=== PATIENT | male | born 1950 | race Caucasian/White ===

== ENCOUNTER 2018-12-17 08:24 | Emergency (ER) | payer MEDICARE ==
--- NOTE | 2018-12-17 08:29 | EDM.PDOC ---
ED HPI GENERAL MEDICAL PROBLEM - General Stated Complaint: INJURED FOOT Time Seen by Provider: 12/17/18 08:29 Source of Information: Reports: Patient - History of Present Illness INITIAL COMMENTS - FREE TEXT/NARRATIVE: HISTORY AND PHYSICAL: History of present illness: [Patient bumped his foot on the front door of his house while opening a door he is been having some pain with ambulation 3 out of 10 nonradiating involving the lateral foot no fever nausea vomiting chills sweats ] Review of systems: As per history of present illness and below otherwise all systems reviewed and negative. Past medical history: As per history of present illness and as reviewed below otherwise noncontributory. Surgical history: As per history of present illness and as reviewed below otherwise noncontributory. Social history: No reported history of drug or alcohol abuse. Family history: As per history of present illness and as reviewed below otherwise noncontributory. Physical exam: HEENT: Atraumatic, normocephalic, pupils reactive, negative for conjunctival pallor or scleral icterus, mucous membranes moist, throat clear, neck supple, nontender, trachea midline. Lungs: Clear to auscultation, breath sounds equal bilaterally, chest nontender. Heart: S1S2, regular, negative for clicks, rubs, or JVD. Abdomen: Soft, nondistended, nontender. Negative for masses or hepatosplenomegaly. Negative for costovertebral tenderness. Pelvis: Stable nontender. Genitourinary: Deferred. Rectal: Deferred. Extremities: Atraumatic, negative for cords or calf pain. Neurovascular unremarkable. Neuro: Awake, alert, oriented. Cranial nerves II through XII unremarkable. Cerebellum unremarkable. Motor and sensory unremarkable throughout. Exam nonfocal. Diagnostics: [] right foot complete Therapeutics: [] S Olmitz ibuprofen Impression: [] right foot injury/contusion Definitive disposition and diagnosis as appropriate pending reevaluation and review of above. Right foot Pain Score (Numeric/FACES): 3 - Related Data Allergies Allergy/AdvReac Type Severity Reaction Status Date / Time No Known Allergies Allergy Verified 12/17/18 08:41 Home Meds: Home Meds . [No Known Home Meds] 12/17/18 [History] Past Medical History Cardiovascular History: Reports: Arrhythmia Gastrointestinal History: Reports: GI Bleed ED ROS GENERAL - Review of Systems Review Of Systems: See Below ED EXAM, GENERAL - Physical Exam Exam: See Below Course - Vital Signs Last Recorded V/S: Last Vital Signs Temp 98.2 F 12/17/18 08:42 Pulse 56 L 12/17/18 08:42 Resp 15 12/17/18 08:42 BP 119/64 12/17/18 08:42 Pulse Ox 95 12/17/18 08:42 - Orders/Labs/Meds Labs: Laboratory Tests 12/17/18 12/17/18 Range/Units 08:55 08:55 WBC 6.78 (4.0-11.0) K/uL RBC 5.28 (4.50-5.90) M/uL Hgb 15.3 (13.0-17.0) g/dL Hct 44.5 (38.0-50.0) % MCV 84.3 (80.0-98.0) fL MCH 29.0 (27.0-32.0) pg MCHC 34.4 (31.0-37.0) g/dL RDW Std Deviation 43.8 (28.0-62.0) fl RDW Coeff of Lobo 14 (11.0-15.0) % Plt Count 193 (150-400) K/uL MPV 9.70 (7.40-12.00) fL Nucleated RBC % 0.0 /100WBC Nucleated RBCs # 0 K/uL Uric Acid 6.7 (2.6-7.2) mg/dL Departure - Departure Time of Disposition: 10:04 Disposition: Home, Self-Care 01 Condition: Good Clinical Impression: Right foot injury, Contusion - Discharge Information Referrals: Herman Ceja MD [Primary Care Provider] - Additional Instructions: Rest Ice 20 minute intervals 3 times daily 7-10 days Ibuprofen 3 times daily as needed Follow-up with primary care if symptoms persist or worsen [facility] - Primary Care [address] [place] [address] The following information is given to patients seen in the emergency department who are being discharged to home. This information is to outline your options for follow-up care. We provide all patients seen in our emergency department with a follow-up referral. The need for follow-up, as well as the timing and circumstances, are variable depending upon the specifics of your emergency department visit. If you don't have a primary care physician on staff, we will provide you with a referral. We always advise you to contact your personal physician following an emergency department visit to inform them of the circumstance of the visit and for follow-up with them and/or the need for any referrals to a consulting specialist. The emergency department will also refer you to a specialist when appropriate. This referral assures that you have the opportunity for follow-up care with a specialist. All of these measure are taken in an effort to provide you with optimal care, which includes your follow-up. Under all circumstances we always encourage you to contact your private physician who remains a resource for coordinating your care. When calling for follow-up care, please make the office aware that this follow-up is from your recent emergency room visit. If for any reason you are refused follow-up, please contact the [facility] emergency department at and asked to speak to the emergency department charge nurse.
--- NOTE | 2018-12-17 09:57 | CR ---
EXAMINATION: Right foot HISTORY: Pain COMPARISON: None TECHNIQUE: 3 views FINDINGS/IMPRESSION: There is no acute osseous abnormality, dislocation, or fracture. Bone mineralization and joint spaces are preserved. No focal soft tissue swelling. Mild osteoarthritic changes within the interphalangeal joints in the tibiotalar joint.
[2018-12-17 17:29] VITALS: BP 113/51
== END 2018-12-17 10:15 | disposition home or self-care (01) ==
LOC: MW.ED 08:24
DX: S90.31XA Contusion of right foot, initial encounter (principal); W22.8XXA Striking against or struck by other objects, initial encounter
CPT/HCPCS: 36415; 73630-26-RT; 73630-RT; 84550; 85027; 99283

== ENCOUNTER 2019-11-23 00:56 | Emergency (ER) | payer MEDICARE ==
--- NOTE | 2019-11-23 01:26 | CR ---
INDICATION: Chest pain TECHNIQUE: Chest 1 view COMPARISON: None FINDINGS: Cardiovascular and mediastinum: Heart size and vasculature are normal in caliber and appearance. Pacemaker is present. Lungs and pleural spaces: Lungs are clear. No sign of infiltrate or mass. No sign of pleural effusion. No pneumothorax. Bones and soft tissues: No significant findings. IMPRESSION: No acute or significant findings. Dictated by Cy Mahajan MD @ Nov 23 2019 1:23AM Signed by Dr. Cy Mahajan @ Nov 23 2019 1:25AM
[2019-11-23 01:52] LABS: BLOOD UREA NITROGEN,BUN 39 mg/dL (7.0-18.0); CARBON DIOXIDE,CO2 25.4 mmol/L (21.0-32.0); CHLORIDE,CL 107 mmol/L (98-107); GLUCOSE RANDOM 142 mg/dL (74-106); LIPASE 131 U/L (73-393); SODIUM,NA 143 mmol/L (136-148)
[2019-11-23] MEDS ORDERED: Sodium Chloride 0.9% 1,000 ML IV ONE (02:00)
[2019-11-23] MEDS ORDERED: Pantoprazole 80 MG in Sodium Chloride 0.9% 20 ML IVPUSH ONE (02:00)
[2019-11-23] MEDS ORDERED: Iopamidol 755 Mg/ML 100 ML Bottle IVPUSH STA (02:24)
--- NOTE | 2019-11-23 03:20 | CT ---
INDICATION: Chest pain and elevated D-dimer. TECHNIQUE: CT chest PE was acquired with 100 cc Isovue 370 intravenous contrast. COMPARISON: None. FINDINGS: Heart and vasculature: Contrast opacification of the pulmonary arterial tree is adequate. No sign of pulmonary embolism. Great vessels unremarkable mild atherosclerotic calcification with normal caliber of the thoracic aorta. No pericardial effusion. Pacemaker leads at the right atrial appendage and right ventricle. Lungs and pleural: No pleural effusion or pneumothorax. Subpleural scarring along the minor fissure. Scattered areas of discoid atelectasis within the lung bases. Lymph nodes/mediastinum: No mediastinal, hilar, or axillary adenopathy. Thyroid gland is normal. Chest wall: Generator left chest wall. Upper abdomen: Status post cholecystectomy. Bones: Unremarkable for age. IMPRESSION: 1. No evidence of pulmonary embolus. 2. Scattered areas of discoid atelectasis lung bases. Please note that all CT scans at this facility use dose modulation, iterative reconstruction, and/or weight-based dosing when appropriate to reduce radiation dose to as low as reasonably achievable. Dictated by Marv Mora MD @ Nov 23 2019 3:14AM Signed by Dr. Marv Mora @ Nov 23 2019 3:19AM
--- NOTE | 2019-11-23 04:29 | CT ---
INDICATION: Abdominal pain and leukocytosis TECHNIQUE: CT abdomen and pelvis without contrast. COMPARISON: None. FINDINGS: Lower chest: Pacemaker leads in the right ventricle. Bibasilar discoid atelectasis. Liver: Normal in size and attenuation. No masses. Gallbladder and bile ducts: Status post cholecystectomy. Pancreas: Unremarkable. No mass or inflammation. Spleen: Normal in size. No masses. Adrenal glands: Normal in size. No nodules. Kidneys: Symmetric renal enhancement without hydronephrosis. Pelvic cysts left kidney as well as a posterior renal cyst measuring 13 millimeters. GI tract: The stomach is unremarkable. There are no dilated loops of large or small intestine with colonic diverticulosis noted. Vasculature: Atherosclerosis without abdominal aortic aneurysm. Pelvis: Unremarkable. No pelvic masses. Bones: Unremarkable for age. IMPRESSION: 1. Colonic diverticulosis without amna diverticulitis. 2. Bilateral renal cysts. Please note that all CT scans at this facility use dose modulation, iterative reconstruction, and/or weight-based dosing when appropriate to reduce radiation dose to as low as reasonably achievable. Dictated by Marv Mora MD @ Nov 23 2019 4:21AM Signed by Dr. Marv Mora @ Nov 23 2019 4:27AM
[2019-11-23 05:45] LABS: BLOOD UREA NITROGEN,BUN 47 mg/dL (7.0-18.0); CARBON DIOXIDE,CO2 25.9 mmol/L (21.0-32.0); CHLORIDE,CL 108 mmol/L (98-107); GLUCOSE RANDOM 124 mg/dL (74-106); SODIUM,NA 143 mmol/L (136-148)
--- NOTE | 2019-11-23 06:15 | EDM.PDOC ---
ED HPI GENERAL MEDICAL PROBLEM - General Chief Complaint: Chest Pain Stated Complaint: AMB Time Seen by Provider: 11/23/19 06:07 - History of Present Illness INITIAL COMMENTS - FREE TEXT/NARRATIVE: HPI 69-year-old male smoker with CAD and upper GI bleeds presents for evaluation of sudden onset shortness of breath, chest pain, and nausea with a sensation that he needs to defecate. Patient now without chest pain. Uncertain of change with sublingual nitroglycerin given by EMS. Symptoms occurred approximately one hour prior to arrival. Patient denies recent immobilization, leg trauma, estrogen use , surgery in the last four weeks, hemoptysis, or malignancy in the last 6 months. M/S/F/SocHx notable for: please see HPI; remainder reviewed with patient and in chart. ROS: Negative constitutional, eye, cardiovascular, pulmonary, GI, , MSK, skin , neurologic, psychiatric, endocrine unless noted in the HPI. Exam Gen: Pleasant, non-toxic appearing, resting comfortably. HEENT: NC, AT, PEERL, EOMI. Resp: Clear to auscultation bilaterally, normal work of breathing. Card: RRR with no M/R/G, no crackles in lung bases, no pedal edema, no JVD appreciated. GI: NT/ND Vascular: Both ankles, calves, and thighs of equal size, no calf tenderness to palpation bilaterally. MSK: No chest wall TTP. No visible deformities, strength and tone WNL. Skin: Normal color with no visible lesions. Neuro: AO x 3, no facial asymmetry, vision and hearing WNL. Psych: Mood and affect appropriate. Labs / Imaging (pertinent): WBC 15.6, Hb (1 AM) 13.6, Hb (5:18 AM) 12.8, Na 143, K 5.0, AST 20, ALT 34, alkaline phosphatase 74, total bilirubin 0.4, troponin (1 AM) <0.050, troponin ( 5:18 AM) <0.050, D-dimer 1.70. FOBT positive EKG: SR at 96 bpm, no IN segment depressions, no new ST segment changes, new LBBB, or T-wave changes that would suggest acute ischemia. CXR: No acute or significant findings. CT PE: no evidence of pulmonary embolism. Scattered areas of discoid atelectasis lung bases. CT abdomen/pelvis: 1 colonic diverticulosis without Sergio diverticulitis. 2. Bilateral renal cysts. MDM Previous chart, nursing note, and vitals reviewed. A: 69-year-old male smoker with CAD and upper GI bleeds presents for evaluation of sudden onset shortness of breath, chest pain, and nausea with a sensation that he needs to defecate. DDx and Evaluation: patient with poorly characterized type discomfort concerning for either intrabdominal or cardiothoracic etiology. Strongly suspect the patients symptoms are secondary to recurrent ulcerative bleeding, FOBT positive, patient with dark stool, BUN:Cr 35. No features to suggest a variceal bleed. Protonix given. 1 L NS given. Vital signs stabilize, patient monitored approximately 4 hours with repeat hemoglobin with minimal change. No evidence of clinically significant active bleeding. CT abdomen and pelvis without evidence of acute intra-abdominal abnormality. CT PE protocol without evidence of acute pathology. ECG nonischemic, serial cardiac enzymes negative. Patient with nonspecific leukocytosis which significantly decreased on repeat CBC. History and exam without evidence of active infectious process, suspect this is secondary to stress. Suspect the epigastric discomfort with nausea the patient experienced prior to presentation was secondary to blood in his stomach. Strongly doubt unstable angina given the overall symptom constellation (1), while this cannot be definitively excluded, the patient is appropriate for outpatient follow-up. Disposition: patient discharged on PPI, will follow up with PCP. Impression: epigastric pain, suspected upper GI bleed. (please reference below for remainder of encounter information) 1. HEART 4 (Hx - 0, EKG - 0, age - 2, risk factors - 2, troponin - 0; 30 day MACE: 12-16.6%, however), however all of the positive factors are present at baseline and were not influenced by todays presentation. Treatments CORPORATE SAFETY DIRECTOR: Reports: IV/IO, Nitroglycerin, Oxygen chest Pain Score (Numeric/FACES): 3 - Related Data Allergies Allergy/AdvReac Type Severity Reaction Status Date / Time No Known Allergies Allergy Verified 11/23/19 01:14 Home Meds: Home Meds Metoprolol Succinate [Kapspargo Sprinkle] 25 mg PO DAILY 11/23/19 [History] Pantoprazole [ProTONIX] 40 mg PO DAILY #20 tab.cr 11/23/19 [Rx] Ranitidine [Zantac] 0 mg PO DAILY 11/23/19 [History] atorvaSTATin [Lipitor] 20 mg PO DAILY 11/23/19 [History] Past Medical History - Past Health History Medical/Surgical History: Denies Medical/Surgical History Cardiovascular History: Reports: Afib, Arrhythmia, High Cholesterol, Pacemaker Gastrointestinal History: Reports: GI Bleed - Infectious Disease History Infectious Disease History: Reports: None - Past Surgical History GI Surgical History: Reports: Appendectomy, Cholecystectomy Social & Family History - Family History Family Medical History: Noncontributory - Tobacco Use Smoking Status *Q: Current Every Day Smoker Years of Tobacco use: 50 Packs/Tins Daily: 1 - Caffeine Use Caffeine Use: Reports: Coffee - Recreational Drug Use Recreational Drug Use: No ED ROS GENERAL - Review of Systems Review Of Systems: See Below ED EXAM, GENERAL - Physical Exam Exam: See Below Course - Vital Signs Last Recorded V/S: Last Vital Signs Temp 36.0 C 11/23/19 02:15 Pulse 98 11/23/19 04:00 Resp 18 11/23/19 04:00 BP 106/65 11/23/19 04:00 Pulse Ox 96 11/23/19 04:00 - Orders/Labs/Meds Orders: Active Orders 24 hr Category Date Time Status EKG Documentation Completion [RC] STAT Care 11/23/19 01:15 Active Fecal Occult Blood Collection [RC] ASDIRECTED Care 11/23/19 01:48 Inactive Fecal Occult Blood Collection [RC] ASDIRECTED Care 11/23/19 02:00 Inactive Labs: Laboratory Tests 11/23/19 11/23/19 11/23/19 Range/Units 01:00 01:00 01:00 WBC 15.64 H (4.0-11.0) K/uL RBC 4.58 (4.50-5.90) M/uL Hgb 13.6 (13.0-17.0) g/dL Hct 39.9 (38.0-50.0) % MCV 87.1 (80.0-98.0) fL MCH 29.7 (27.0-32.0) pg MCHC 34.1 (31.0-37.0) g/dL RDW Std Deviation 43.8 (28.0-62.0) fl RDW Coeff of Lobo 14 (11.0-15.0) % Plt Count 261 (150-400) K/uL MPV 10.30 (7.40-12.00) fL Neut % (Auto) (48.0-80.0) % Lymph % (Auto) (16.0-40.0) % [place] % (Auto) (0.0-15.0) % Eos % (Auto) (0.0-7.0) % Baso % (Auto) (0.0-1.5) % Neut # (Auto) (1.4-5.7) K/uL Lymph # (Auto) (0.6-2.4) K/uL [place] # (Auto) (0.0-0.8) K/uL Eos # (Auto) (0.0-0.7) K/uL Baso # (Auto) (0.0-0.1) K/uL Add Manual Diff YES Neutrophils % (Manual) 68 (48.0-80.0) % Band Neutrophils % 1 % Lymphocytes % (Manual) 21 (16.0-40.0) % Monocytes % (Manual) 8 (0.0-15.0) % Eosinophils % (Manual) 2 (0.0-7.0) % Nucleated RBC % /100WBC Absolute Seg Neuts 10.6 H (1.4-5.7) Band Neutrophils # 0.2 Lymphocytes # (Manual) 3.3 H (0.6-2.4) Monocytes # (Manual) 1.3 H (0.0-0.8) Eosinophils # (Manual) 0.3 (0.0-0.7) Nucleated RBCs # K/uL D-Dimer, Quantitative 1.70 H (0.0-0.50) mg/L FEU Sodium 143 (136-148) mmol/L Potassium 5.0 (3.5-5.1) mmol/L Chloride 107 (98-107) mmol/L Carbon Dioxide 25.4 (21.0-32.0) mmol/L BUN 39 H (7.0-18.0) mg/dL Creatinine 1.1 (0.8-1.3) mg/dL Est Cr Clr Drug Dosing 81.00 mL/min Estimated GFR (MDRD) > 60.0 ml/min Glucose 142 H (74-106) mg/dL Calcium 8.2 L (8.5-10.1) mg/dL Total Bilirubin 0.4 (0.2-1.0) mg/dL AST 20 (15-37) IU/L ALT 34 (14-63) IU/L Alkaline Phosphatase 74 (46-116) U/L Troponin I < 0.050 (0.000-0.056) ng/mL Total Protein 6.3 L (6.4-8.2) g/dL Albumin 3.5 (3.4-5.0) g/dL Globulin 2.8 (2.6-4.0) g/dL Albumin/Globulin Ratio 1.2 (0.9-1.6) Lipase 131 (73-393) U/L 11/23/19 11/23/19 Range/Units 05:18 05:18 WBC 11.88 H (4.0-11.0) K/uL RBC 4.40 L (4.50-5.90) M/uL Hgb 12.8 L (13.0-17.0) g/dL Hct 38.0 (38.0-50.0) % MCV 86.4 (80.0-98.0) fL MCH 29.1 (27.0-32.0) pg MCHC 33.7 (31.0-37.0) g/dL RDW Std Deviation 44.4 (28.0-62.0) fl RDW Coeff of Lobo 14 (11.0-15.0) % Plt Count 191 (150-400) K/uL MPV 10.10 (7.40-12.00) fL Neut % (Auto) 86.1 H (48.0-80.0) % Lymph % (Auto) 9.2 L (16.0-40.0) % [place] % (Auto) 4.3 (0.0-15.0) % Eos % (Auto) 0.3 (0.0-7.0) % Baso % (Auto) 0.1 (0.0-1.5) % Neut # (Auto) 10.2 H (1.4-5.7) K/uL Lymph # (Auto) 1.1 (0.6-2.4) K/uL [place] # (Auto) 0.5 (0.0-0.8) K/uL Eos # (Auto) 0.0 (0.0-0.7) K/uL Baso # (Auto) 0.0 (0.0-0.1) K/uL Add Manual Diff Neutrophils % (Manual) (48.0-80.0) % Band Neutrophils % % Lymphocytes % (Manual) (16.0-40.0) % Monocytes % (Manual) (0.0-15.0) % Eosinophils % (Manual) (0.0-7.0) % Nucleated RBC % 0.0 /100WBC Absolute Seg Neuts (1.4-5.7) Band Neutrophils # Lymphocytes # (Manual) (0.6-2.4) Monocytes # (Manual) (0.0-0.8) Eosinophils # (Manual) (0.0-0.7) Nucleated RBCs # 0 K/uL D-Dimer, Quantitative (0.0-0.50) mg/L FEU Sodium 143 (136-148) mmol/L Potassium 5.0 (3.5-5.1) mmol/L Chloride 108 H (98-107) mmol/L Carbon Dioxide 25.9 (21.0-32.0) mmol/L BUN 47 H (7.0-18.0) mg/dL Creatinine 1.0 (0.8-1.3) mg/dL Est Cr Clr Drug Dosing 89.10 mL/min Estimated GFR (MDRD) > 60.0 ml/min Glucose 124 H (74-106) mg/dL Calcium 8.6 (8.5-10.1) mg/dL Total Bilirubin (0.2-1.0) mg/dL AST (15-37) IU/L ALT (14-63) IU/L Alkaline Phosphatase (46-116) U/L Troponin I < 0.050 (0.000-0.056) ng/mL Total Protein (6.4-8.2) g/dL Albumin (3.4-5.0) g/dL Globulin (2.6-4.0) g/dL Albumin/Globulin Ratio (0.9-1.6) Lipase (73-393) U/L Meds: Medications Discontinued Medications Generic Name Dose Route Start Last Admin Trade Name Claudio PRN Reason Stop Dose Admin Pantoprazole Sodium 80 mg/ 20 mls @ 420 mls/hr 11/23/19 02:00 11/23/19 02:13 Sodium Chloride IVPUSH 11/23/19 02:02 420 mls/hr ONETIME ONE Administration Sodium Chloride 1,000 mls @ 1,000 mls/hr 11/23/19 02:00 11/23/19 02:13 Normal Saline IV 11/23/19 02:59 1,000 mls/hr .Bolus ONE Administration Iopamidol 100 ml 11/23/19 02:24 11/23/19 02:58 Isovue-370 (76%) IVPUSH 11/23/19 02:25 100 ml ONETIME STA Administration Departure - Departure Time of Disposition: 06:07 Disposition: Home, Self-Care 01 Clinical Impression: Epigastric pain, Upper GI bleed - Discharge Information Prescriptions: Pantoprazole [ProTONIX] 40 mg PO DAILY #20 tab.cr Referrals: Herman Ceja MD [Primary Care Provider] - Additional Instructions: You were in seen in the [facility] Emergency Department for evaluation of upper abdominal pain. At the time of your evaluation your symptoms are tentatively believed to be due to a recurrent upper GI bleed. Please take an [id number] proton pump inhibitor medication , such as Protonix. Please read and follow all of the instructions below. Please follow up with your primary care physician within 48 hours. When calling for follow-up care, please make the office aware that this follow-up is from your recent emergency room visit. If for any reason you are refused follow-up, please contact the [facility] Emergency Department at and asked to speak to the emergency department charge nurse. Your care today was limited to identifying and treating emergent medical problems only. Many people have subtle differences in their test results that require follow up with their outpatient physician(s) to correctly determine if this represents a normal variation or concerning abnormality with respect to your specific health. The care given to you today was limited to identifying and treating emergent medical problems - you need to request a copy of all of your medical records from today's visit and follow up with your outpatient physician(s) to review both today's visit and your overall health. If you have any new symptoms or if you are at all concerned about your health please return immediately to the emergency department. Prescriptions: If you are uninsured or have financial difficulties with filling your prescription(s), you may consider using a free pharmacy discount service such as [employer] ([employer]) or [employer] ([employer]). These services allow you to search for a medication on your phone (or computer) and obtain a coupon that usually has a significant discount from the list pineda at a pharmacy. Your physician as well as [facility] does not have a financial relationship with either of these services. You may also wish to speak with your physician to determine if lower cost prescriptions are possible. Obtaining primary care: 1. [facility] provides pediatrics (children), family medicine (children, adults, and some obstetrical care), and internal medicine (adults). Further specialty care is also available. Same day appointments are available. They may be contacted at [phone] and are open Monday through Monday 8 AM to 5 PM. The [facility] are located at [facility], [address] [place] [address]. 2. [facility] offers family medicine, internal medicine, womens health, and further specialty care. [facility] may be contacted at [phone]. [facility] is located at [address] [facility] [address]. 3. If you have health insurance, please also contact your insurer for a list of accepting providers under your policy, you may contact these providers for further health care. Occupational health: Work related injuries may consider following up with [facility], . Occupational health services are located at [address] [place] [address] and are open Monday through Monday from 7: 30 am to 5:00 pm. Obstetrical and Gynecological Care: [facility], , Monday through Monday 8 AM to 5 PM. [address] [address]. Eyecare: If you have an eye injury you should follow up with your advertising copy writer or with [facility], at [phone] or [phone] , they are located at [address] [place] [address]. [facility] Brandon Omer DDS. [address] [place], [place]. Ph. [phone] Ramos Omer DDS MS. [address] [facility] [address], [place], [place]. Ph. Lonnie Last DDS. 10 11/[address] [place] [address]. Ph. [phone] Manuelito Boo DDS. [address] [facility] 4 [place], [place]. Ph. [phone] Oliver Rosario DDS PC. [address] [facility] [address] [place], [place]. Ph. Xin Palomares DDS. [address] [facility] [address] [facility]. Ph. [phone] [facility]. [address] [place], [place]. Ph. [phone] [facility]. [address] [place] [address], [place], [place]. Ph. [phone] [facility] [address] [place] [phone]. Ph. [facility]. [address] [place] [address] [address] [place], [place]. Ph. [facility]. [address] [place], [place]. Ph. [phone] Sepsis Event Note - Evaluation Sepsis Screening Result: No Definite Risk - Focused Exam Vital Signs: Vital Signs Temp Pulse Resp BP Pulse Ox 11/23/19 04:00 98 18 106/65 96 11/23/19 02:15 36.0 C 92 18 96/63 95 11/23/19 00:56 35.5 C 102 H 20 108/69 95 Date Exam was Performed: 11/23/19 Time Exam was Performed: 06:07 - My Orders Last 24 Hours: My Active Orders 11/23/19 01:15 EKG Documentation Completion [RC] STAT 11/23/19 01:48 Fecal Occult Blood Collection [RC] ASDIRECTED 11/23/19 02:00 Fecal Occult Blood Collection [RC] ASDIRECTED - Assessment/Plan Last 24 Hours: My Active Orders 11/23/19 01:15 EKG Documentation Completion [RC] STAT 11/23/19 01:48 Fecal Occult Blood Collection [RC] ASDIRECTED 11/23/19 02:00 Fecal Occult Blood Collection [RC] ASDIRECTED
[2019-11-23 06:47] VITALS: BP 106/63; PULSE 96
== END 2019-11-23 06:35 | disposition home or self-care (01) ==
LOC: MW.ED 00:56
DX: K92.2 Gastrointestinal hemorrhage, unspecified (principal); E78.00 Pure hypercholesterolemia, unspecified; F17.210 Nicotine dependence, cigarettes, uncomplicated; Z79.899 Other long term (current) drug therapy
CPT/HCPCS: 36415; 71045; 71275; 74176; 80048; 80053; 82272; 83690; 84484; 85025; 85379; 93005; 96361; 96374; 99285; C9113; J7030; Q9967; 99284

== ENCOUNTER 2019-11-24 11:07 | Emergency (ER) | payer MEDICARE ==
--- NOTE | 2019-11-24 11:18 | EDM.PDOC ---
ED HPI GENERAL MEDICAL PROBLEM - General Chief Complaint: Gastrointestinal Problem Stated Complaint: UPPER GI BLEED Time Seen by Provider: 11/24/19 11:17 Source of Information: Reports: Patient History Limitations: Reports: No Limitations - History of Present Illness INITIAL COMMENTS - FREE TEXT/NARRATIVE: Patient is a 69-year-old male who presents after having 3 days of melena with each bowel movement today occurring once an hour while awake. Patient is feeling lightheaded with standing and dyspnea with even slight exertion. Is complaining of mild epigastric pain but has not been vomiting and there is been no hematochezia. Patient has had this problem numerous times in the past and with one previous admission required 23 units of blood and was in a coma for 2 days. Patient does take aspirin for his arthritis symptoms even though he knows he is not supposed to be taking that due to his GI bleed. Previous bleeding was due to a upper bleeds secondary to gastric ulcer. Patient has refused surgery previously to repair this ulcer. Duration: Getting Worse Location: Reports: Abdomen Quality: Reports: Ache, Dull Severity: Mild Improves with: Reports: None Worsens with: Reports: Eating Associated Symptoms: Reports: Shortness of Breath, Weakness - Related Data Allergies Allergy/AdvReac Type Severity Reaction Status Date / Time No Known Allergies Allergy Verified 11/24/19 11:34 Home Meds: Home Meds Metoprolol Succinate [Kapspargo Sprinkle] 25 mg PO DAILY 11/23/19 [History] Pantoprazole [ProTONIX] 40 mg PO DAILY #20 tab.cr 11/23/19 [Rx] Ranitidine [Zantac] 0 mg PO DAILY 11/23/19 [History] atorvaSTATin [Lipitor] 20 mg PO DAILY 11/23/19 [History] Past Medical History - Past Health History Medical/Surgical History: Denies Medical/Surgical History Cardiovascular History: Reports: Afib, Arrhythmia, High Cholesterol, Pacemaker Gastrointestinal History: Reports: GI Bleed - Infectious Disease History Infectious Disease History: Reports: None - Past Surgical History GI Surgical History: Reports: Appendectomy, Cholecystectomy Social & Family History - Family History Family Medical History: Noncontributory - Caffeine Use Caffeine Use: Reports: Coffee ED ROS GENERAL - Review of Systems Review Of Systems: Comprehensive ROS is negative, except as noted in HPI. ED EXAM, GI/ABD - Physical Exam Exam: See Below Exam Limited By: No Limitations General Appearance: Alert, No Apparent Distress Head: Atraumatic Neck: Normal Inspection, Supple Respiratory/Chest: No Respiratory Distress, Lungs Clear, Normal Breath Sounds. No: Decreased Breath Sounds, Crackles, Rales Cardiovascular: Regular Rate, Rhythm, No Edema, No JVD, No Murmur GI/Abdominal Exam: Normal Bowel Sounds, Soft, No Organomegaly, Tender Back Exam: Normal Inspection Extremities: Normal Inspection Neurological: Alert, Oriented Psychiatric: Normal Affect Skin Exam: Warm, Dry, Normal Color Course - Vital Signs Last Recorded V/S: Last Vital Signs Temp 36.4 C 11/24/19 11:36 Pulse 78 11/24/19 12:10 Resp 18 11/24/19 12:10 BP 134/76 11/24/19 12:10 Pulse Ox 98 11/24/19 12:10 Orthostatic Blood Pressure [ 118/72 Standing] Orthostatic Blood Pressure [ 123/82 Sitting] Orthostatic Blood Pressure [ 129/76 Supine] - Orders/Labs/Meds Orders: Active Orders 24 hr Category Date Time Status EKG 12 Lead [EKG Documentation Completion] [RC] STAT Care 11/24/19 11:24 Active Orthostatic Vital Signs [RC] ASDIRECTED Care 11/24/19 11:28 Active C DIFFICILE AG/TOXIN W/REFLEX [RM] Stat Lab 11/24/19 13:56 Ordered OVA & PARASITES BY IMMUNOASSAY [MREF] Stat Lab 11/24/19 13:56 Ordered Sodium Chloride 0.9% [Saline Flush] Med 11/24/19 11:26 Active 10 ml FLUSH ASDIRECTED PRN Sodium Chloride 0.9% [Saline Flush] Med 11/24/19 11:26 Active 2.5 ml FLUSH ASDIRECTED PRN Saline Lock Insert [OM.PC] Stat Oth 11/24/19 11:26 Ordered Medication Orders Sodium Chloride (Saline Flush) 10 ml FLUSH ASDIRECTED PRN PRN Reason: Keep Vein Open Last Admin: 11/24/19 11:50 Dose: 10 ml Sodium Chloride (Saline Flush) 2.5 ml FLUSH ASDIRECTED PRN PRN Reason: Keep Vein Open Last Admin: 11/24/19 11:50 Dose: 2.5 ml Labs: Laboratory Tests 11/24/19 11/24/19 11/24/19 Range/Units 11:44 11:44 11:44 WBC 8.97 (4.0-11.0) K/uL RBC 4.37 L (4.50-5.90) M/uL Hgb 12.8 L (13.0-17.0) g/dL Hct 37.7 L (38.0-50.0) % MCV 86.3 (80.0-98.0) fL MCH 29.3 (27.0-32.0) pg MCHC 34.0 (31.0-37.0) g/dL RDW Std Deviation 44.8 (28.0-62.0) fl RDW Coeff of Lobo 14 (11.0-15.0) % Plt Count 219 (150-400) K/uL MPV 10.20 (7.40-12.00) fL Neut % (Auto) 62.8 (48.0-80.0) % Lymph % (Auto) 27.5 (16.0-40.0) % Garland % (Auto) 7.2 (0.0-15.0) % Eos % (Auto) 2.3 (0.0-7.0) % Baso % (Auto) 0.2 (0.0-1.5) % Neut # (Auto) 5.6 (1.4-5.7) K/uL Lymph # (Auto) 2.5 H (0.6-2.4) K/uL Garland # (Auto) 0.7 (0.0-0.8) K/uL Eos # (Auto) 0.2 (0.0-0.7) K/uL Baso # (Auto) 0.0 (0.0-0.1) K/uL Nucleated RBC % 0.0 /100WBC Nucleated RBCs # 0 K/uL Sodium 141 (136-148) mmol/L Potassium 3.7 (3.5-5.1) mmol/L Chloride 104 (98-107) mmol/L Carbon Dioxide 25.5 (21.0-32.0) mmol/L BUN 34 H (7.0-18.0) mg/dL Creatinine 1.1 (0.8-1.3) mg/dL Est Cr Clr Drug Dosing 81.00 mL/min Estimated GFR (MDRD) > 60.0 ml/min Glucose 108 H (74-106) mg/dL Calcium 9.1 (8.5-10.1) mg/dL Total Bilirubin 0.4 (0.2-1.0) mg/dL AST 23 (15-37) IU/L ALT 41 (14-63) IU/L Alkaline Phosphatase 76 (46-116) U/L Total Protein 7.4 (6.4-8.2) g/dL Albumin 4.4 (3.4-5.0) g/dL Globulin 3.0 (2.6-4.0) g/dL Albumin/Globulin Ratio 1.5 (0.9-1.6) Blood Type B POSITIVE Antibody Screen NEGATIVE Meds: Medications Generic Name Dose Route Start Last Admin Trade Name Freq PRN Reason Stop Dose Admin Sodium Chloride 10 ml 11/24/19 11:26 11/24/19 11:50 Saline Flush FLUSH 10 ml ASDIRECTED PRN Administration Keep Vein Open Sodium Chloride 2.5 ml 11/24/19 11:26 11/24/19 11:50 Saline Flush FLUSH 2.5 ml ASDIRECTED PRN Administration Keep Vein Open Discontinued Medications Generic Name Dose Route Start Last Admin Trade Name Freq PRN Reason Stop Dose Admin Pantoprazole Sodium 80 mg/ 20 mls @ 420 mls/hr 11/24/19 11:28 11/24/19 12:06 Sodium Chloride IVPUSH 11/24/19 11:30 420 mls/hr ONETIME ONE Administration Sodium Chloride 1,000 mls @ 999 mls/hr 11/24/19 11:26 11/24/19 11:49 Normal Saline IV 11/24/19 12:26 999 mls/hr BOLUS ONE Administration Pantoprazole Sodium 80 mg/ 20 mls @ 420 mls/hr 11/24/19 11:52 Sodium Chloride IVPUSH 11/24/19 11:54 ONETIME ONE - Re-Assessments/Exams Free Text/Narrative Re-Assessment/Exam: 11/24/19 14:01 Patient's H&H is stable with hemoglobin at 12.7. Orthostatic vital signs were positive with his heart rate going up more than 20 from lying to standing. Patient did have a bowel movement while in the department which was brown in color but had some bright red blood around it. He was given a liter of IV fluid and is feeling better was treated with 80 mg Protonix IV. Patient was discussed with Dr. Taylor our surgeon who felt it was safe for her to transfer him to [facility] since he is able to scope here but has no way to do any cauterization if patient was bleeding. He felt patient would need to be scoped either today or tomorrow. I have talked to Dr. Rosas at [facility] emergency department who has accepted him for transfer. I feel patient is safe enough to go by private car which is what patient and his are requesting. Departure - Departure Time of Disposition: 14:03 Disposition: DC/Tfer to Acute Hospital 02 Condition: Fair Clinical Impression: GI bleed, Exertional shortness of breath - Discharge Information Forms: ED Department Discharge Additional Instructions: Go to [facility] in [place] to be admitted by Dr. Hines for your GI bleed. They will arrange for a counter tender to evaluate you and scope you over the next day or 2. Return to emergency department symptoms are worse. The following information is given to patients seen in the emergency department who are being discharged to home. This information is to outline your options for follow-up care. We provide all patients seen in our emergency department with a follow-up referral. The need for follow-up, as well as the timing and circumstances, are variable depending upon the specifics of your emergency department visit. If you don't have a primary care physician on staff, we will provide you with a referral. We always advise you to contact your personal physician following an emergency department visit to inform them of the circumstance of the visit and for follow-up with them and/or the need for any referrals to a consulting specialist. The emergency department will also refer you to a specialist when appropriate. This referral assures that you have the opportunity for follow-up care with a specialist. All of these measure are taken in an effort to provide you with optimal care, which includes your follow-up. Under all circumstances we always encourage you to contact your private physician who remains a resource for coordinating your care. When calling for follow-up care, please make the office aware that this follow-up is from your recent emergency room visit. If for any reason you are refused follow-up, please contact the [facility] Emergency Department at and asked to speak to the emergency department charge nurse. Sepsis Event Note - Focused Exam Vital Signs: Vital Signs Temp Pulse Resp BP Pulse Ox 11/24/19 12:10 78 18 134/76 98 11/24/19 11:36 36.4 C 102 H 16 122/86 96 Date Exam was Performed: 11/24/19 Time Exam was Performed: 13:57 - My Orders Last 24 Hours: My Active Orders 11/24/19 11:24 EKG 12 Lead [EKG Documentation Completion] [RC] STAT 11/24/19 11:26 Sodium Chloride 0.9% [Saline Flush] 10 ml FLUSH ASDIRECTED PRN Sodium Chloride 0.9% [Saline Flush] 2.5 ml FLUSH ASDIRECTED PRN Saline Lock Insert [OM.PC] Stat 11/24/19 11:28 Orthostatic Vital Signs [RC] ASDIRECTED - Assessment/Plan Last 24 Hours: My Active Orders 11/24/19 11:24 EKG 12 Lead [EKG Documentation Completion] [RC] STAT 11/24/19 11:26 Sodium Chloride 0.9% [Saline Flush] 10 ml FLUSH ASDIRECTED PRN Sodium Chloride 0.9% [Saline Flush] 2.5 ml FLUSH ASDIRECTED PRN Saline Lock Insert [OM.PC] Stat 11/24/19 11:28 Orthostatic Vital Signs [RC] ASDIRECTED
[2019-11-24] MEDS ORDERED: Sodium Chloride 0.9% 2.5 ML Syringe FLUSH PRN (11:26)
[2019-11-24] MEDS ORDERED: Sodium Chloride 0.9% 10 ML Syringe FLUSH PRN (11:26)
[2019-11-24] MEDS ORDERED: Sodium Chloride 0.9% 1,000 ML IV ONE (11:26)
[2019-11-24] MEDS ORDERED: Pantoprazole 80 MG in Sodium Chloride 0.9% 20 ML IVPUSH ONE ×2 (11:28→11:52)
[2019-11-24 12:16] LABS: BLOOD UREA NITROGEN,BUN 34 mg/dL (7.0-18.0); CARBON DIOXIDE,CO2 25.5 mmol/L (21.0-32.0); CHLORIDE,CL 104 mmol/L (98-107); GLUCOSE RANDOM 108 mg/dL (74-106); POTASSIUM,K 3.7 mmol/L (3.5-5.1); SODIUM,NA 141 mmol/L (136-148)
[2019-11-24 14:01] VITALS: BP 117/83; PULSE 104
== END 2019-11-24 14:15 ==
LOC: MW.ED 11:07
DX: K92.2 Gastrointestinal hemorrhage, unspecified (principal); R06.09 Other forms of dyspnea; E78.00 Pure hypercholesterolemia, unspecified; Z79.899 Other long term (current) drug therapy
CPT/HCPCS: 36415; 80053; 85025; 86850; 86900; 86901; 87045; 87046; 87324; 87328; 87329; 87899; 93005; 96361; 96374; 99285; C9113; J7030; 99283